=== PATIENT | female | born 1965 | race American Indian/Alaskan Native ===

== ENCOUNTER 2016-09-28 22:41 | Emergency (ER) | payer SELFPAY ==
[2016-09-28 22:55] VITALS: BP 152/74
[2016-09-28 23:41] LABS: Basophils % (Auto) 0.5 % (0.0-1.8); Eosinophils % (Auto) 1.3 % (0.0-4.3); Hemoglobin 12.8 gm/dl (10.1-14.3); Mean Corpuscular HGB Conc 33 % (30-34); Mean Corpuscular Hemoglobin 29 pg (28-32); Mean Corpuscular Volume 89 fl (79-97); Platelet Count 373 K/mm3 (140-440); Red Cell Distribution Width 13.9 % (13.2-15.2); White Blood Count 12.8 K/mm3 (4.5-11.0)
[2016-09-28 23:49] LABS: INR 0.92 (0.87-1.13)
[2016-09-28 23:50] LABS: Partial Thromboplastin Time 32.1 Sec. (24.2-36.6)
--- NOTE | 2016-09-29 00:01 | Emergency Department Report ---
ED Dizziness HPI - General Chief Complaint: Dizziness Stated Complaint: DIZZINESS Time Seen by Provider: 09/28/16 23:52 Source: patient Mode of arrival: Ambulatory Limitations: No Limitations - History of Present Illness Initial Comments: This is a 50-year-old female who gives numerous complaints. The bottom line appears to be that she is homeless. She was recently in the [facility]. She was just discharged yesterday and spent one day at a homeless [facility]ci. She did not necessarily enjoy the facility and was [facility] to [facility] to [facility]. By the time she decided this that was too late to access the [facility] for further assistance. She decides to come here instead. She does report some mild chest wall discomfort. She states she has been carrying her luggage around and this is causing some discomfort. She actually was seen in the emergency department earlier for the same and was told the same thing as I've been telling her. She is otherwise feeling well in general. When I ask her specifically about her dizziness she states that she does not drink enough fluids and does feel lightheaded from time to time. Associated Symptoms: chest pain (chest wall). denies: fever/chills, loss of appetite, seizure, shortness of breath, syncope - Related Data Previous Rx's Medication Instructions Recorded Last Taken Type Hydrochlorothiazide [HCTZ] 25 mg PO QDAY #30 tablet 08/13/16 Unknown Rx Allergies Allergy/AdvReac Type Severity Reaction Status Date / Time Iodine and Iodide Containing Allergy Shortness Verified 08/13/16 12:09 Produc of Breath antibiotics Allergy Unknown Uncoded 08/13/16 12:09 ED Review of Systems ROS: Stated complaint: DIZZINESS Other details as noted in HPI Comment: All other systems reviewed and negative Constitutional: denies: chills, fever Eyes: denies: eye pain, eye discharge, vision change ENT: denies: ear pain, throat pain Respiratory: denies: cough, shortness of breath, wheezing Cardiovascular: chest pain (chest wall). denies: palpitations Endocrine: no symptoms reported Gastrointestinal: denies: abdominal pain, nausea, diarrhea Genitourinary: denies: urgency, dysuria, discharge Musculoskeletal: denies: back pain, joint swelling, arthralgia Skin: denies: rash, lesions Neurological: denies: headache, weakness, paresthesias Psychiatric: denies: anxiety, depression, homicidal thoughts, suicidal thoughts Hematological/Lymphatic: denies: easy bleeding, easy bruising ED Past Medical Hx - Past Medical History Previous Medical History?: Yes Hx Psychiatric Treatment: Yes Additional medical history: Refuse to answer psych hx questions. Poor Historian - Surgical History Past Surgical History?: Yes Additional Surgical History: Tooth. Poor Historian - Social History Smoking Status: Never Smoker Substance Use Type: None - Medications Home Medications: Home Medications Medication Instructions Recorded Confirmed Last Taken Type Hydrochlorothiazide [HCTZ] 25 mg PO QDAY #30 tablet 08/13/16 Unknown Rx ED Physical Exam - General Limitations: No Limitations General appearance: alert, in no apparent distress - Head Head exam: Present: atraumatic, normocephalic - Eye Eye exam: Present: normal appearance, EOMI. Absent: scleral icterus - ENT ENT exam: Present: normal exam, normal orophraynx, mucous membranes moist - Neck Neck exam: Present: normal inspection. Absent: tenderness, lymphadenopathy - Respiratory Respiratory exam: Present: normal lung sounds bilaterally, other (L sternal border tenderness. No crepitance or bony stepoff noted.). Absent: respiratory distress, wheezes, rales - Cardiovascular Cardiovascular Exam: Present: regular rate, normal rhythm. Absent: systolic murmur, diastolic murmur, rubs, gallop - GI/Abdominal GI/Abdominal exam: Present: soft, normal bowel sounds - Extremities Exam Extremities exam: Present: normal inspection. Absent: tenderness, pedal edema, calf tenderness - Back Exam Back exam: Present: normal inspection. Absent: tenderness, CVA tenderness (R), CVA tenderness (L) - Neurological Exam Neurological exam: Present: alert, oriented X3 - Psychiatric Psychiatric exam: Present: normal affect, normal mood - Skin Skin exam: Present: warm, dry, intact, normal color. Absent: rash ED Course Vital Signs 09/28/16 22:44 Temperature 98.5 F Pulse Rate 75 Respiratory 20 Rate Blood Pressure 152/74 [Right] O2 Sat by Pulse 100 Oximetry - Reevaluation(s) Reevaluation #1: 09/29/16 00:01 ECG at 2247 with normal sinus rhythm at 72 bpm with a normal WA and QRS. No normal axis. Normal ECG. Reevaluation #2: 09/29/16 04:55 My examination is unremarkable here but for costochondral tenderness. ECG was unremarkable as well. Blood tests were performed and they demonstrate no specific abnormalities. The patient is quite pleasant at this time. Again the biggest issue seems to be safe place to stay tonight. I did tell the patient she was welcome the resting my lobby and even in the bed in the bed where she was at his lungs we didn't need this pain is. She was given a meal here. I did give her some Naprosyn as well for her costochondritis. Otherwise stable and appropriate for outpatient management ED Medical Decision Making - Lab Data Result diagrams: 09/28/16 23:27 09/28/16 23:27 Critical care attestation.: If time is entered above; I have spent that time in minutes in the direct care of this critically ill patient, excluding procedure time. ED Disposition Clinical Impression: Costochondritis, acute, Homelessness Disposition: DISCHARGED TO HOME OR SELFCARE Is pt being admited?: No Does the pt Need Aspirin: No Condition: Stable Instructions: Costochondritis (ED) Additional Instructions: Take aleve or ibuprofen as needed for chest discomforts. Referrals: PRIMARY CARE, [Primary Care Provider] - 3-5 Days Time of Disposition: 00:26
[2016-09-29 00:05] LABS: Anion Gap 17 mmol/L; BUN/Creatinine Ratio 15.71; Blood Urea Nitrogen 11 mg/dL (7-17); Calcium 9.5 mg/dL (8.4-10.2); Carbon Dioxide 27 mmol/L (22-30); Chloride 99.6 mmol/L (98-107); Glucose 104 mg/dL (65-100); Potassium 3.7 mmol/L (3.6-5.0); Sodium 140 mmol/L (137-145)
[2016-09-29] MEDS ORDERED: NAPROSYN PO ONE (00:25)
== END 2016-09-29 00:40 | disposition home or self-care (01) ==
LOC: ED 22:41
DX: M94.0 Chondrocostal junction syndrome [Tietze] (principal); Z59.0 Homelessness
CPT/HCPCS: 36415; 80048; 84484; 85025; 85610; 85730; 93005; 93010; 99283; G0480; 80320